=== PATIENT | male | born 1940 | race Caucasian/White ===

== ENCOUNTER 2019-08-28 12:17 | Inpatient (IN) | payer SELFPAY ==
[~2019-08-28] VITALS: Ht 170.2 cm; Wt 77.6 kg
--- NOTE | 2019-08-28 12:30 | NUR ---
bib katy buddhism; pt was found wandering the street; pt to bed 6, awake, alert, -sob, nad noted, placed on monitor, vss. pending md olivo
--- NOTE | 2019-08-28 13:06 | NUR ---
SAFETY ADVISOR was informed by ED RN Kris, that pt was found wandering in the streets and was brought to [facility] ED by a good shaan. Pt is confused and is not able to provide meaningful information. Per ED RN, pt reports to come from a Board and Care facility in [place], however is unable to provide name and contact information. SW contacted Missing Persons and left a voicemail message for a acidity tester to call back.
--- NOTE | 2019-08-28 13:06 | NUR ---
CALLED DINORAH CHAIREZ, WILL CALL MISSING PERSONS.
--- NOTE | 2019-08-28 13:52 | NUR ---
MIHAELA contacted [employer] and left a message for a call back to [facility] ED and left contact information. MIHAELA also contacted Public Guardian's office and spoke with officer of the day to inquire if pt. might have a conservator. Per Officer, pt. does not have a public guardian.
--- NOTE | 2019-08-28 14:00 | NUR ---
unable to find placement per lorenzo smith
--- NOTE | 2019-08-28 15:00 | NUR ---
pt will be admitted in [facility] for aloc and dehydration
--- NOTE | 2019-08-28 15:53 | NUR ---
LEAK DETECTION ENGINEER contacted the non emergency [employer] hotline and spoke with Officer Jamar informing her regarding pt's disposition. Officer Jamar informed SW, they have received calls on a few elderly that are missing. Per Officer Jamar, she will have LEAK DETECTION ENGINEER speak with recessing machine operator to dispatch [employer] unit to [place]. LEAK DETECTION ENGINEER spoke with recessing machine operator [id number] who informed LEAK DETECTION ENGINEER, she will dispatch a unit to come to [facility] but is not able to give ETA since it is non-urgent. MIHAELA updated ED RN Hadley and Supervisor Lace Tearing Dr. Spangler with aforementioned information.
[2019-08-28 16:12] LABS: BASOPHILS # (AUTO) 0.1 /CMM (0.0-0.2); BASOPHILS % (AUTO) 1.1 % (0.0-2.0); EOSINOPHILS % (AUTO) 0.3 % (0.0-6.0); HEMATOCRIT 49 % (39-51); HEMOGLOBIN 16.5 g/dL (13.5-17.5); LYMPHOCYTES # (AUTO) 1.9 /CMM (0.8-4.8); LYMPHOCYTES % (AUTO) 20.7 % (20.0-44.0); MEAN CORPUSCULAR HGB CONC 33 g/dl (31.0-36.0); MEAN CORPUSCULAR VOLUME 96 fL (80-96); MONOCYTES # (AUTO) 1.2 /CMM (0.1-1.30); MONOCYTES % (AUTO) 13.2 % (2.0-12.0); NEUTROPHILS # (AUTO) 5.9 /CMM (1.8-8.9); NEUTROPHILS % (AUTO) 64.7 % (43.0-81.0); PLATELET COUNT (AUTO) 185 /CMM (150-450); RED BLOOD CELL COUNT(AUTO) 5.12 MIL/uL (4.5-6.0)
[2019-08-28 16:18] LABS: CALCIUM, SERUM 9.4 mg/dL (8.5-10.1); CARBON DIOXIDE 30 mmol/L (21-32); CHLORIDE 105 mmol/L (98-107); CREATININE 1.1 mg/dL (0.6-1.3); GLUCOSE 105 mg/dL (74-106); POTASSIUM 3.6 mmol/L (3.5-5.1); SODIUM SERUM 143 mmol/L (136-145); UREA NITROGEN, BLOOD 34 mg/dL (7-18)
[2019-08-28] MEDS ORDERED: IV NS 0.9% 1,000 ML BAG IV ONE (16:30)
[2019-08-28 16:31] LABS: ALANINE AMINOTRANSFERASE 29 U/L (12-78); ALBUMIN 4.3 g/dL (3.4-5.0); ALCOHOL, BLOOD < 3 mg/dL (0-0); ALKALINE PHOSPHATASE 104 U/L (46-116); ASPARTATE AMINOTRANSFERASE 19 U/L (15-37); BILIRUBIN,DIRECT 0.3 mg/dL (0.0-0.2); BILIRUBIN,TOTAL 1.3 mg/dL (0.2-1.0); TOTAL PROTEIN, SERUM 8.1 g/dL (6.4-8.2)
[2019-08-28 16:47] LABS: ACETAMINOPHEN 0 ug/ml (10-30); SALICYLATE 0.2 mg/dL (2.8-20.0)
--- NOTE | 2019-08-28 16:50 | NUR ---
CALLED NURSING SUP FOR M/S BED.
--- NOTE | 2019-08-28 16:50 | NUR ---
PAGED [facility].
[2019-08-28] MEDS ORDERED: MAG HYDROX/AL HYDROX/SIMETH 30 ML UDC PO PRN (17:00)
[2019-08-28] MEDS ORDERED: ACETAMINOPHEN 325 MG TABLET PO PRN (17:00)
[2019-08-28] MEDS ORDERED: ONDANSETRON HCL/PF 4 MG/2 ML VIAL IVP PRN (17:00)
[2019-08-28] MEDS ORDERED: MAGNESIUM HYDROXIDE 30 ML UDC PO PRN (17:00)
[2019-08-28] MEDS ORDERED: Z GUARD REMEDY 2 OZ OINT TP PRN (17:00)
--- NOTE | 2019-08-28 17:08 | NUR ---
NURSING SUP GAVE M/S [id number].
--- NOTE | 2019-08-28 17:37 | NUR ---
REPORT GIVEN TO ALYSSA MARMOLEJO CHARGE NURSE FOR [facility]
--- NOTE | 2019-08-28 18:00 | NUR ---
ROPE CUTTER NOTES RECEIVED PT VIA [facility]. PT IS AMBULATORY. APPARENTLY HE CAME TO THE ER BEACUSE HE WAS WANDERING OUT IN THE STREETS AND WAS BROUGHT IN BY A GOOD TENRIISM. ADMITTED TO [facility] WITH ADMITTING DX OF DEHYDRATION. DR. CHAPIN AWARE AND GAVE ADMITTING ORDERS. PT HAS NO SIGNIFICANT MEDICAL HX. HE IS AO2. HE KNOWS HE IS AT [facility], BUT DOES NOT KNOW TOODAYS DATE. HE DOES KNOW WHO IS IS AND KNOWS THAT HE LIVES IN A BOARD AND CARE BUT DOES NOT KNOW WHERE EXACTLY OR THE NAME. BODY CHECK DONE. SKIN INTACT. IV ACCESS NOTED ON L HAND G18 WITH NS RUNNING AT 100ML/HR. WILL ENDORSE TO NEXT SHIFT
[2019-08-28] MEDS: IV NS 0.9% 1,000 ML IV PRN (18:40)
[2019-08-28 18:58] VITALS: BP 153/72
[2019-08-28 19:30] VITALS: BP 141/82
--- NOTE | 2019-08-28 19:40 | NUR ---
MS RN NOTES PATIENT IN BED, ALERT AND ORIENTED X 2, CONFUSED. BREATHING EVEN AND UNLABORED ON ROOM AIR. SHOWS NO SIGNS OF ACUTE RESPIRATORY DISTRESS. NO ACUTE PAIN. IV ON L HAND 18G RUNNING NS AT 100ML/HR. SHOWS NO SIGNS OF INFILTRATION, NO REDNESS. SAFETY PRECAUTIONS IN PLACE. BED IN LOWEST POSITION, LOCKED, AND CALL LIGHT KEPT WITHIN REACH. WILL CONTINUE TO MONITOR.
[2019-08-28 20:00] VITALS: BP 141/82
--- NOTE | 2019-08-28 22:00 | NUR ---
MS MARMOLEJO NOTES OFFICER CAME TO INTERVIEW PT REGARDING PREVIOUS HOUSING. OFFICER WILL CONTACT THE HOSPITAL REGARDING NEW UPDATES ON PT. WILL CONTINUE TO MONITOR.
[2019-08-29 06:41] LABS: BASOPHILS # (AUTO) 0.1 /CMM (0.0-0.2); EOSINOPHILS % (AUTO) 1.6 % (0.0-6.0); HEMATOCRIT 43 % (39-51); HEMOGLOBIN 14.6 g/dL (13.5-17.5); LYMPHOCYTES % (AUTO) 27.9 % (20.0-44.0); MEAN CORPUSCULAR HGB CONC 34 g/dl (31.0-36.0); MEAN CORPUSCULAR VOLUME 94 fL (80-96); MONOCYTES # (AUTO) 0.8 /CMM (0.1-1.30); NEUTROPHILS # (AUTO) 4.3 /CMM (1.8-8.9); NEUTROPHILS % (AUTO) 58.5 % (43.0-81.0); PLATELET COUNT (AUTO) 152 /CMM (150-450); RED BLOOD CELL COUNT(AUTO) 4.54 MIL/uL (4.5-6.0); WHITE BLOOD COUNT (AUTO) 7.3 K/uL (4.3-11.0)
--- NOTE | 2019-08-29 07:00 | NUR ---
MS RN NOTES UNSUCCESSFUL ATTEMPT ON IV. AFTER SEVERAL ATTEMPTS, PT BECAME AGITATED AND REFUSED IV. WILL ENDORSE TO ONCOMING NURSE.
[2019-08-29 07:01] LABS: CALCIUM, SERUM 8.6 mg/dL (8.5-10.1); MAGNESIUM 2.2 mg/dL (1.8-2.4); POTASSIUM 3.3 mmol/L (3.5-5.1)
--- NOTE | 2019-08-29 07:08 | NUR ---
MS RN NOTES PATIENT IN BED, ALERT AND ORIENTED X 2, CONFUSED. BREATHING EVEN AND UNLABORED ON ROOM AIR. SHOWS NO SIGNS OF ACUTE RESPIRATORY DISTRESS. NO ACUTE PAIN. PT PULLED OUT IV, AND REFUSING IV LINE. SHOWS NO SIGNS OF INFILTRATION, NO REDNESS. ALL NEEDS ATTENDED TO. SAFETY PRECAUTIONS IN PLACE. BED IN LOWEST POSITION, LOCKED, AND CALL LIGHT KEPT WITHIN REACH. WILL ENDORSE TO ONCOMING NURSE.
[2019-08-29 08:00] VITALS: BP 120/85
--- NOTE | 2019-08-29 08:00 | NUR ---
received pt. this am,alert and oriented x2.very pleasantly confused.a little suspicious.still refusing iv fluids.given po liquids.
[2019-08-29] MEDS ORDERED: POTASSIUM CHLORIDE 20 MEQ POWDER PACKET PO SCH (10:00)
[2019-08-29] MEDS: LORAZEPAM 1 MG TABLET PO PRN (14:47)
--- NOTE | 2019-08-29 14:53 | NUR ---
pt. getting oob freq. wandering about. dr. ma contacted and rn received ativan order,med given.
[2019-08-29 16:00] VITALS: BP 132/78
--- NOTE | 2019-08-29 16:45 | NUR ---
dr. rojas notified of psych consult.
--- NOTE | 2019-08-29 19:35 | NUR ---
MS RN NOTES RECEIVED RESTING COMFORTABLY ON BED,BREATHING REGULAR,NOT IN ANY FORM OF DISTRESS.IVF NS AT 100ML/HR RATE,TRIED TO RE INFUSE BUT REFUSED.WITH EPISODE OF WANDERING.WILL MONITOR BEHAVIOR.DR SANTANA TO SEE PATIENT TOMORROW.WILL CONTINUE TO MONITOR BEHAVIOR.
[2019-08-29 20:00] VITALS: BP 110/62
--- NOTE | 2019-08-30 06:34 | NUR ---
MS RN NOTES CALM AND QUIET THRU OUT SHIFT.PSYCHE CONSULT TODAY BY DR SANTANA
--- NOTE | 2019-08-30 07:30 | NUR ---
MS/RN NOTE THE PATIENT IS RECEIVED IN BED. PATIENT IS ALERT AND ORIENTED X1. DENIES SOB. RESPIRATION REGULAR AND UNLABORED. DENIES PAIN. THE PATIENT IS IN NO APPARENT DISTRESS. BED LOW AND LOCKED. SIDE RAILS UP X3. CALL LIGHT WITHIN REACH. WILL CONTINUE TO MONITOR.
[2019-08-30 08:00] VITALS: BP 121/65
[2019-08-30 08:48] LABS: BASOPHILS # (AUTO) 0.1 /CMM (0.0-0.2); BASOPHILS % (AUTO) 0.8 % (0.0-2.0); EOSINOPHILS % (AUTO) 1.8 % (0.0-6.0); HEMATOCRIT 48 % (39-51); LYMPHOCYTES # (AUTO) 2.1 /CMM (0.8-4.8); LYMPHOCYTES % (AUTO) 27.4 % (20.0-44.0); MEAN CORPUSCULAR HGB CONC 34 g/dl (31.0-36.0); MEAN CORPUSCULAR VOLUME 94 fL (80-96); MONOCYTES # (AUTO) 0.7 /CMM (0.1-1.30); MONOCYTES % (AUTO) 9.5 % (2.0-12.0); NEUTROPHILS # (AUTO) 4.5 /CMM (1.8-8.9); NEUTROPHILS % (AUTO) 60.5 % (43.0-81.0); PLATELET COUNT (AUTO) 170 /CMM (150-450); RED BLOOD CELL COUNT(AUTO) 5.04 MIL/uL (4.5-6.0); WHITE BLOOD COUNT (AUTO) 7.5 K/uL (4.3-11.0)
[2019-08-30 08:50] LABS: CALCIUM, SERUM 8.9 mg/dL (8.5-10.1); MAGNESIUM 2.1 mg/dL (1.8-2.4); PHOSPHORUS 2.7 mg/dL (2.5-4.9); POTASSIUM 3.5 mmol/L (3.5-5.1)
--- NOTE | 2019-08-30 10:00 | NUR ---
MS/RN NOTE PATIENT REMOVED IV FROM LEFT HAND AND REFUSES IV INSERTION AND IV FLUIDS.
[2019-08-30] MEDS: LORAZEPAM 1 MG TABLET PO PRN ×2 (12:08→21:33)
[2019-08-30] MEDS ORDERED: OLANZAPINE 10 MG VIAL IM ONE (12:30)
--- NOTE | 2019-08-30 13:00 | NUR ---
MS/RN NOTE PATIENT REMOVED IV FROM LEFT HAND AND REFUSES IV INSERTION AND IV FLUIDS.
[2019-08-30] MEDS: DIVALPROEX SODIUM 250 MG TABLET.DR PO SCH ×2 (14:02→21:33)
[2019-08-30] MEDS: QUETIAPINE FUMARATE 25 MG TABLET PO SCH ×2 (14:03→17:43)
[2019-08-30 16:00] VITALS: BP 143/93
--- NOTE | 2019-08-30 17:00 | NUR ---
MS/RN NOTE PATIENT REMOVED IV FROM LEFT HAND AND REFUSES IV INSERTION AND IV FLUIDS.
[2019-08-30] MEDS: IV NS 0.9% 1,000 ML IV PRN (18:06)
--- NOTE | 2019-08-30 18:20 | NUR ---
MS/RN NOTE THE PATIENT FINALLY AGREED FOR A NEW IV.IV STARTED ON LEFT HAND G 22 AND THE PATIENT TOLERATED IV INSERTION WELL. ALSO, PATIENT AGREED FOR ORDERED IV FLUIDS.
--- NOTE | 2019-08-30 18:40 | NUR ---
MS/RN NOTE THE PATIENT IS ALERT AND ORIENTED X1. IN ROOM AIR AND SATURATION IS AT 97%. DENIES SOB. RESPIRATION REGULAR AND UNLABORED. DENIES PAIN. THE PATIENT IS IN NO APPARENT DISTRESS. LEFT HAND G 22 PATENT AND NS INFUSING AT 100ML/HR AND NO S/S INFILTRATION NOTED. BED LOW AND LOCKED. SIDE RAILS UP X3. CALL LIGHT WITHIN REACH. WILL ENDORSE TO DASHBOARD DEVELOPER.
[2019-08-30 20:00] VITALS: BP 134/84
--- NOTE | 2019-08-30 20:05 | NUR ---
assigned patient given written report patient found in room standing up and bleeding from hand. pt removed iv from left hand catheter found in tact. bandage applied and patient helped back to bed. bed alarm activated. will cont to monitor.
--- NOTE | 2019-08-30 21:30 | NUR ---
PT REFUSED NEW IV INSERTION. ATTEMPTED NEW INSERTION OF IV WHEN ASSESSING FOR POSSIBLE SIGHT PATIENT BECAME AGITAGED AND LIFTED UP HIS PILLOW STATING" NOW YOU STOP THAT. WE CAN DO THIS LATER. I JUST WANT SOME PIE. " PATIENT GIVEN SNACKS. AND HE BEGAN TO CALM DOWN. PATIENT DRINKING, ENCOURAGED TO DRINK LIQUIDS. DRANK 2 JUICE BOXES AND ATE 3 CUPS OF PUDDING. WILL CONT TO MONITOR. ATTEMPT IV INSERTION LATER.
--- NOTE | 2019-08-31 01:15 | NUR ---
PT REFUSED IV INSERTION; PT IN BED AROUSABLE TO VOICE. ATTEMPTED TO INSERT NEW IV. PATIENT STATES, "I DON'T TRUST YOU. LEAVE ME ALONE. I JUST WANT TO GO TO SLEEP. WILL CONT TO MONITOR. PATIENT ENCOURAGED TO DRINK FLUIDS. WILL REATTEMPT LATER THIS AM.
--- NOTE | 2019-08-31 07:15 | NUR ---
MS RN NOTES RECEIVED PATIENT IN BED ASLEEP, AROUSABLE TO VEAL AND TACTILE STIMULI. HOB ELEVATED. PATIENT REFUSED IV INSERTION AT THIS TIME. DENIES ANY C/O PAIN NOR DISCOMFORT. BED IN LOWEST POSITION, LOCKED. BED ALARM ON. CALL LIGHT WITHIN REACH.
[2019-08-31 08:00] VITALS: BP 150/94
[2019-08-31] MEDS: DIVALPROEX SODIUM 250 MG TABLET.DR PO SCH ×2 (08:45→20:53)
[2019-08-31] MEDS: LORAZEPAM 1 MG TABLET PO PRN ×2 (08:46→20:53)
[2019-08-31] MEDS: QUETIAPINE FUMARATE 25 MG TABLET PO SCH ×3 (08:46→16:06)
--- NOTE | 2019-08-31 10:14 | NUR ---
MIHAELA spoke to the pt at bedside. MIHAELA inquired where the pt was residing previous to his hospital admission and the pt stated, "I came from [facility]." SW stated that she has information stating that he came from a Board and Care and the pt stated, "Oh yes I do come from a Board and Care. There are evil people there." SW asked if he remembered where the Board and Care was and he stated that he does not know and that the SW is a devil for wanting to know. MIHAELA then asked him if he knows his social security number and once again the pt stated that the SW is evil and a devil for wanting that information. MIHAELA then called Missing Persons ([phone]) and spoke to Williams. MIHAELA provided him with the pts name and date and asked if anyone reported the pt missing. Williams put the SW on hold to check the system and then stated that the pt was not reported missing.
--- NOTE | 2019-08-31 14:08 | NUR ---
MIHAELA contacted Missing Persons ([phone]) again and spoke to Officer Kramer to inquire if pt has been reported missing. Per Officer Kramer, pt has not been reported missing.
[2019-08-31 16:00] VITALS: BP 142/86
--- NOTE | 2019-08-31 18:55 | NUR ---
MS RN NOTES PATIENT AMBULATING ALONG UNIT WITH STEADY GAIT. NO S/S OF RESPIRATORY DISTRESS. PATIENT STILL REFUSED IV INSERTION AT THIS TIME. DENIES ANY C/O PAIN NOR DISCOMFORT. BED IN LOWEST POSITION, LOCKED. BED ALARM ON. CALL LIGHT WITHIN REACH. ABLE TO VERBALIZE NEEDS. IN NO APPARENT DISTRESS.
--- NOTE | 2019-08-31 19:11 | NUR ---
MS RN: RECEIVED PATIENT Patient in bed , awake, hyperverbal, appears restless. A/O x1, on room air, denies SOB. Excellent appetite and No IV access, refused insertion per RN report. Ambulates independently. Maintained safety.
[2019-08-31 20:00] VITALS: BP 120/70
--- NOTE | 2019-09-01 06:34 | NUR ---
MS RN: END OF SHIFT REPORT Patient in bed, tolerating room air, denies SOB. Able to calm down after PRN Ativan, slept well. Good appetite, ambulates independently. cinder worker to assist for safe discharge, Psyche following. Will endorse to Oncoming RN. Fall precaution maintained.
[2019-09-01 08:00] VITALS: BP 143/85
[2019-09-01] MEDS: DIVALPROEX SODIUM 250 MG TABLET.DR PO SCH ×2 (08:47→22:05)
[2019-09-01] MEDS: QUETIAPINE FUMARATE 25 MG TABLET PO SCH ×3 (08:48→17:21)
--- NOTE | 2019-09-01 09:52 | NUR ---
MIHAELA called Missing Persons ([phone]) and spoke to Kramer. MIHAELA provided him with the pts name and date and asked if anyone reported the pt missing. [facility] put the SW on hold to check the system and then stated that the pt has not been reported missing.
[2019-09-01] MEDS: QUETIAPINE FUMARATE 25 MG TABLET PO PRN (10:00)
--- NOTE | 2019-09-01 10:00 | NUR ---
given extra seroquel.dr. rojas just here.
[2019-09-01] MEDS: LORAZEPAM 1 MG TABLET PO PRN ×2 (11:26→22:05)
--- NOTE | 2019-09-01 11:29 | NUR ---
given ativan for agitation.0.5 mg po.
[2019-09-01 16:00] VITALS: BP 128/81
--- NOTE | 2019-09-01 18:00 | NUR ---
WANDERING OUT AT DESK OFTEN,CONFUSED.
[2019-09-01 20:00] VITALS: BP 128/73
--- NOTE | 2019-09-01 20:16 | NUR ---
MS/TELE/RN PATIENT IS IN ROOM EATING CRACKERS, AWAKE, ALERT, ORIENTED, COMFORTABLE, NO C/O PAIN, NO DISTRESS NOTED, CALL LIGHT IN REACH. WILL MONITOR.
--- NOTE | 2019-09-01 22:08 | NUR ---
MS/TELE/RN PATIENT KEEPS ON GOING AROUND THE HALLWAY, ATIVAN 0.5 MG PO WAS GIVEN ORDERED. WILL MONITOR.
[2019-09-02] MEDS: QUETIAPINE FUMARATE 25 MG TABLET PO PRN (02:15)
--- NOTE | 2019-09-02 02:21 | NUR ---
MS/TELE/RN PATIENT IS STILL AWAKE, HAS NOT SLEPT A BIT SINCE THE LORAZEPAM PO WAS GIVEN, PATIENT STILL WALKING AROUND, SEROQUEL PO WAS GIVEN ORDERED, WILL MONITOR.
--- NOTE | 2019-09-02 04:09 | NUR ---
MS/TELE/RN PATIENT APPEAR SLEEPING AT THIS TIME, APPEAR COMFORTABLE, NO SIGNS OF DISTRESS NOTED, CALL LIGHT IN REACH. WILL CONTINUE TO MONITOR.
--- NOTE | 2019-09-02 06:25 | NUR ---
MS/TELE/RN PATIENT IS STILL SLEEPING AT THIS TIME, APPEAR COMFORTABLE, NO SIGNS OF DISTRESS NOTED, CALL LIGHT IN REACH, ALL NEEDS ATTENDED AT THIS TIME, WILL CONTINUE TO MONITOR.
[2019-09-02 08:00] VITALS: BP 106/61
[2019-09-02] MEDS: DIVALPROEX SODIUM 250 MG TABLET.DR PO SCH ×2 (08:38→21:00)
[2019-09-02] MEDS: QUETIAPINE FUMARATE 25 MG TABLET PO SCH ×4 (08:38→21:00)
--- NOTE | 2019-09-02 08:51 | NUR ---
RN Opening Notes: Received pt. awake in bed, responsive to staff and hyperverbal. No signs of distress and no agitation noted. Pt. ate 100% for breakfast and compliant on meds. Safety precautions in place. Bed locked and set to lowest position with side rails x 2 up. Call light within reach. Needs attended and will continue to monitor.
--- NOTE | 2019-09-02 11:45 | NUR ---
MIHAELA called Missing Persons ([phone]) and spoke to Officer Aristeo. She stated that the pt has not been listed as a missing person at this time.
--- NOTE | 2019-09-02 11:46 | NUR ---
Case Management Meeting Per the case management meeting, case consultant will work on placing the pt in a Board and Care.
[2019-09-02 16:00] VITALS: BP 143/84
[2019-09-02 20:00] VITALS: BP 146/80
--- NOTE | 2019-09-03 02:07 | NUR ---
Patient A&O 2-3. Patient fell asleep so no medication given.
[2019-09-03] MEDS: QUETIAPINE FUMARATE 25 MG TABLET PO PRN (04:39)
--- NOTE | 2019-09-03 05:27 | NUR ---
Patient awake lying in bed. No s/s of distress or pain. Call light in reach. Side rails up. Bed in low position. Will give report to day shift nurse.
[2019-09-03 08:00] VITALS: BP 139/70
[2019-09-03] MEDS: DIVALPROEX SODIUM 250 MG TABLET.DR PO SCH ×2 (08:14→20:53)
[2019-09-03] MEDS: QUETIAPINE FUMARATE 25 MG TABLET PO SCH ×4 (08:15→20:53)
--- NOTE | 2019-09-03 08:30 | NUR ---
RN Notes: Received pt. awake in his room, hyperverbal, no distress and no agitation noted. Ate 100% for breakfast, compliant on meds. Safety precautions in place. Bed locked and set to lowest position with side rails x 2 up. Call light within reach. Needs attended and will continue to monitor.
[2019-09-03 16:00] VITALS: BP 122/74
--- NOTE | 2019-09-03 18:45 | NUR ---
RN Closing Notes: Pt. is awake in his room and watching tv, ate 100% for dinner and compliant on meds, no distress and no agitation noted. Will endorse to incoming nurse for continuity of care.
--- NOTE | 2019-09-03 19:30 | NUR ---
STORE ASSOCIATE NOTE, RECEIVED PATIENT AWAKE AND IN BED, NO S/S OR COMPLAINTS OF PAIN AT THIS TIME. PATIENT BREATHING IS UNLABORED WITH EQUAL RISE AND FALL OF THE CHEST. PATIENT IS ALERT AND ORIENTED X 2 ON ROOM AIR WITH A SPOO2 97%. PATIENT ASSISTED WITH TURNING AND REPOSITIONING Q2HR AND PRN FOR COMFORT AND CIRCULATION. PATIENT HAS NO NEEDS AT THIS TIME. PATIENT EDUCATED ON THE USE OF THE CALL LIGHT. PATIENT BED SIDE RAILS UP X 2 FOR SAFETY. PATIENT BED IS LOCKED AND LOW WILL CONTINUE TO MONITOR AND MAINTAIN SAFETY Q15 MIN WITH THE HELP OF STAFF.
[2019-09-03 20:00] VITALS: BP 127/70
[2019-09-03 20:33] VITALS: BP 127/70
--- NOTE | 2019-09-03 22:56 | NUR ---
MED / OFFICE COORDINATOR NOTE, PATIENT IS A SLEEP IN BED EASILY AROUSES, ALL SCHEDULED PM MEDS GIVEN. PATIENT HAS NO S/S OR COMPLAINTS OF PAIN AT THIS TIME. PATIENT IS DISPLAYING NO S/S OF APPARENT DISTRESS AT TIS TIME. PATIENT BREATHING IS UNLABORED WITH EQUAL RISE AND FALL OF THE CHEST. ALL PATIENTS NEEDS ANTICIPATED AND MET. PATIENT BED IS LOW AND LOCKED, CALL LIGHT IN REACH WITH TWO SIDE RAILS UP FOR SAFETY. WILL CONTINUE TO MONITOR AND MAINTAIN SAFETY.
--- NOTE | 2019-09-04 06:38 | NUR ---
DATA SCIENTIST NOTE, PATIENT AWAKE AND IN BED, NO S/S OR COMPLAINTS OF PAIN AT THIS TIME. PATIENT BREATHING IS UNLABORED WITH EQUAL RISE AND FALL OF THE CHEST. PATIENT IS ALERT AND ORIENTED X 2 ON ROOM AIR. PATIENT ASSISTED WITH TURNING AND REPOSITIONING Q2HR AND PRN FOR COMFORT AND CIRCULATION. ALL PATIENTS NEEDS ANTICIPATED AND MET. PATIENT BED SIDE RAILS UP X 2 FOR SAFETY. PATIENT BED IS LOCKED AND LOW WILL ENDORSE TO AM SHIFT NURSE FOR CONTINUATION OF CARE.
--- NOTE | 2019-09-04 07:53 | NUR ---
MS RN- OPENING NOTES RECEIVED PATIENT FROM DIRECT SERVICE WORKER NURSE IN, BED, AWAKE, CONSCIOUS, ALERT AND ORIENTED X 2, UNLABORED BREATHING AT ROOM AIR, NO SIGNS OF RESPIRATORY DISTRESS, SIDE RAILS UP FOR SAFETY, NO IV ACCESS.
[2019-09-04 08:00] VITALS: BP 123/83
[2019-09-04] MEDS: DIVALPROEX SODIUM 250 MG TABLET.DR PO SCH (08:29)
[2019-09-04] MEDS: QUETIAPINE FUMARATE 25 MG TABLET PO SCH ×2 (08:33→12:53)
--- NOTE | 2019-09-04 13:22 | NUR ---
Discharge Note SW met with the pt and the pt appeared to be oriented x1 (self). Pt appeared to be confused and disorganized. SW provided the pt with homeless resources and informed him that he was being discharged to a [facility]. Pt will be discharged to [facility] located at [address] [place] [address]; ([phone]). Pt will be transported via taxi at 4:15pm. There was no one to notify regarding the pts discharge and the pt has not been registered as a missing person at this time.
[2019-09-04 16:00] VITALS: BP 124/76
--- NOTE | 2019-09-04 16:15 | NUR ---
MS RN DISCHARGED NOTES DISCHARGED PATIENT VIA WHEELCHAIR TO LOBBY, AWAKE, CONFUSED, COOPERATIVE, AMBULATORY, SKIN INTACT, NO SIGNS OF RESPIRATORY DISTRESS. KAELA RODE A TAXI TO HIS DISTINATION.
== END 2019-09-04 16:15 | disposition home or self-care (01) | DRG 682 ==
LOC: ER 12:19 → MED 17:19
PROVIDERS: ADMIT Internal Medicine; ATTEND Internal Medicine
DX: N17.0 Acute kidney failure with tubular necrosis (principal); G93.41 Metabolic encephalopathy; E86.0 Dehydration; E87.6 Hypokalemia; F29 Unspecified psychosis not due to a substance or known physiological condition; F25.0 Schizoaffective disorder, bipolar type; I10 Essential (primary) hypertension; R40.2413 Glasgow coma scale score 13-15, at hospital admission
CPT/HCPCS: 36415; 71045-TC; 80048-TC; 80076-TC; 80164-TC; 83735-TC; 84100-TC; 85025-TC; 87081-TC; G0378; G0480; J3490; J7030